=== PATIENT | female | born 1935 | race Caucasian/White ===

== ENCOUNTER 2016-07-06 13:22 | Outpatient (CLI) | payer OTHER, MEDICARE ==
--- NOTE | 2016-07-06 15:42 | DIAGNOSTIC IMAGING REPORT ---
PROCEDURE: XR CHEST 2 VIEW INDICATION: COPD TECHNIQUE: PA and lateral view. COMPARISON: Chest x-ray 01/30/2015. FINDINGS: Lungs are clear. Cardiovascular structures are normal. Stable mild chronic mid thoracic spine compression fractures and degenerative changes. No significant interval change. Cholecystectomy. Surgical clips adjacent to the proximal right humerus. IMPRESSION: 1. No acute changes
== END 2016-07-06 23:00 ==
LOC: XR SRH 13:22
DX: J44.9 Chronic obstructive pulmonary disease, unspecified (principal)